=== PATIENT | female | born 1990 | race Caucasian/White ===

== ENCOUNTER 2016-06-24 12:52 | Outpatient (CLI) | payer OTHER | END 2016-06-24 23:00 | LOC: LAB SRH 12:52 | DX: Z34.02 Encounter for supervision of normal first pregnancy, second trimester (principal) | CPT/HCPCS: 90039; 91162; 91163 ==

== ENCOUNTER 2016-07-22 08:35 | Outpatient (CLI) | payer OTHER | END 2016-07-22 23:00 | disposition home or self-care (01) | LOC: LAB SRH 08:35 | DX: O99.810 Abnormal glucose complicating pregnancy (principal) | CPT/HCPCS: 90074; 92652 ==

== ENCOUNTER 2016-08-06 09:52 | Outpatient (CLI) | payer OTHER ==
--- NOTE | 2016-08-06 11:24 | DIAGNOSTIC IMAGING REPORT ---
PROCEDURE: US OB DETAILED ANATOMIC INDICATION: ANATOMY TECHNIQUE: Weaver scale, color, and spectral Doppler images of the second trimester gravid uterus were obtained. COMPARISON: None. FINDINGS: Study limited by patient's body habitus. Single intrauterine with vertex presentation, posterior placenta without previa and heart rate 144 bpm. Amniotic fluid is unremarkable. Normal closed cervix measures 3.1 cm. The anatomic survey, including the intracranial anatomy, facial structures, nuchal region, spine, zwjq-fizinwa-ibkna view, outflow tracts, chest and diaphragm, stomach and abdomen, three-vessel cord and cord insertion, bladder and pelvis, kidneys and extremities, is within normal limits. BPD 5.2 cm, 21 weeks 5 days; head circumference 19.5 cm, 24-dwlg-4-day; abdominal circumference 16.9 cm, 63-itrb-0-day; femur length 3.8 cm, 22 weeks 1 day. Composite age 21 weeks 6 days. ASHLYN 12/11/2016. IMPRESSION: 1. Single live intrauterine , vertex, 21-week 6 days 2. ASHLYN 12/11/2016
--- NOTE | 2016-08-06 11:24 | DIAGNOSTIC IMAGING REPORT ---
PROCEDURE: US OB DETAILED ANATOMIC INDICATION: ANATOMY TECHNIQUE: Weaver scale, color, and spectral Doppler images of the second trimester gravid uterus were obtained. COMPARISON: None. FINDINGS: Study limited by patient's body habitus. Single intrauterine with vertex presentation, posterior placenta without previa and heart rate 144 bpm. Amniotic fluid is unremarkable. Normal closed cervix measures 3.1 cm. The anatomic survey, including the intracranial anatomy, facial structures, nuchal region, spine, wnek-zugilkr-ethvr view, outflow tracts, chest and diaphragm, stomach and abdomen, three-vessel cord and cord insertion, bladder and pelvis, kidneys and extremities, is within normal limits. BPD 5.2 cm, 21 weeks 5 days; head circumference 19.5 cm, 46-fwsl-0-day; abdominal circumference 16.9 cm, 69-kqti-0-day; femur length 3.8 cm, 22 weeks 1 day. Composite age 21 weeks 6 days. ASHLYN 12/11/2016. IMPRESSION: 1. Single live intrauterine , vertex, 21-week 6 days 2. ASHLYN 12/11/2016
== END 2016-08-06 23:00 ==
LOC: US SRH 09:52
DX: Z34.92 Encounter for supervision of normal pregnancy, unspecified, second trimester (principal); Z3A.21 21 weeks gestation of pregnancy

== ENCOUNTER 2016-11-25 09:17 | Outpatient (CLI) | payer OTHER | END 2016-11-25 10:05 | disposition home or self-care (01) | LOC: NST SRH 09:17 → OB SRH 09:21 → NST SRH 10:05 | PROC: 4A0HXCZ Measurement of Products of Conception, Cardiac Rate, External Approach (ICD-10-PCS; principal; 2016-11-25) | DX: O24.419 Gestational diabetes mellitus in pregnancy, unspecified control (principal); Z3A.36 36 weeks gestation of pregnancy ==

== ENCOUNTER 2016-12-03 09:01 | Outpatient (CLI) | payer OTHER ==
--- NOTE | 2016-12-03 10:33 | DIAGNOSTIC IMAGING REPORT ---
PROCEDURE: US OB RE-EVALUATION INDICATION: SIZE GREATER THAN DATES TECHNIQUE: Weaver scale, color, and spectral Doppler images of the second trimester gravid uterus were obtained. COMPARISON: OB ultrasound 08/06/2016 FINDINGS: A single living intrauterine is in vertex presentation. There is regular cardiac activity at a rate of 158 beats per minute. The placenta is fundal and away from the internal cervical os. The cervix is closed measuring approximately 3.1 cm in length. The amniotic fluid volume is 13.9 centimeters which represents the 44th percentile Biparietal diameter 9.4 cm at 38 8 weeks and 3 days Head circumference 33.5 cm of 30 weeks and 2 days Abdominal circumference 34.6 cm at 31 8 weeks and 3-day Femur length 7.5 cm 38 weeks and 1 day Head to abdominal circumference ratio and femur length to abdominal circumference ratios are normal. Estimated weight 3475 g Composite gestational age 38 weeks and 2 days, ASHLYN 12/15/2016 Heart stomach bladder and kidneys were normal IMPRESSION: 1. Single living intrauterine with a composite gestational age of 38 weeks and 2 days, ASHLYN 12/15/2016 2. Symmetric and normal anatomy.
[2016-12-17] MEDS ORDERED: PRENATAL1 TAB PO (02:37)
== END 2016-12-03 23:00 | disposition home or self-care (01) ==
LOC: US SRH 09:01
PROC: 4A0HXCZ Measurement of Products of Conception, Cardiac Rate, External Approach (ICD-10-PCS; principal; 2016-12-03)
DX: O24.439 Gestational diabetes mellitus in the puerperium, unspecified control (principal); O26.843 Uterine size-date discrepancy, third trimester; Z3A.37 37 weeks gestation of pregnancy

== ENCOUNTER 2016-12-10 09:02 | Outpatient (CLI) | payer OTHER ==
[2016-12-17] MEDS ORDERED: PRENATAL1 TAB PO (02:37)
== END 2016-12-10 10:05 | disposition home or self-care (01) ==
LOC: OBC SRH 09:02 → OB SRH 09:05 → OBC SRH 10:05
PROC: 4A0HXCZ Measurement of Products of Conception, Cardiac Rate, External Approach (ICD-10-PCS; principal; 2016-12-10)
DX: O24.419 Gestational diabetes mellitus in pregnancy, unspecified control (principal); Z3A.38 38 weeks gestation of pregnancy

== ENCOUNTER 2016-12-11 09:50 | Outpatient (CLI) | payer OTHER ==
[2016-12-17] MEDS ORDERED: PRENATAL1 TAB PO (02:37)
== END 2016-12-11 11:40 | disposition home or self-care (01) ==
LOC: OBC SRH 09:50 → OB SRH 09:52 → OBC SRH 11:40
PROC: 4A0HXCZ Measurement of Products of Conception, Cardiac Rate, External Approach (ICD-10-PCS; principal; 2016-12-11)
DX: O47.1 False labor at or after 37 completed weeks of gestation (principal); Z3A.38 38 weeks gestation of pregnancy